=== PATIENT | male | born 1995 | race Caucasian/White ===

== ENCOUNTER 2016-10-03 16:51 | Emergency (ER) | payer OTHER ==
[~2016-10-03] VITALS: Wt 127.3 kg
--- NOTE | 2016-10-03 17:05 | ERD ---
ER Documentation Chief Complaint Date/Time DATE: 10/03/16 TIME: 17:03 Chief Complaint cough, sore throat HPI 21-year-old male otherwise healthy comes emergency department with a cough that has been on and off for the past 2 weeks. He describes as dry cough, with white colored sputum. Has not had any fevers, chills, chest pain or shortness of breath. Reports sore throat. No vomiting or diarrhea. He also states that he has had a itchy rash on the right side of the wrist. He tried an over-the- counter cream, did not help. As he states it is slightly growing in size. ROS All systems reviewed and are negative except as per history of present illness. Medications Home Meds Active Scripts Amoxicillin/Potassium Clav (Amox-Clav 875-125 mg Tablet) 875-125 mg Tab, 1 TAB PO BID for 7 Days, #14 TAB Prov:DENNY AYERS PA-C 10/03/16 Dextromethorphan Hb-Promethazine Hcl (Promethazine DM Syrup) 473 Ml Syrup, 5 ML PO Q6H Y for COUGH, #4 OZ Prov:DENNY AYERS PA-C 10/03/16 Benzonatate* (Tessalon Perle*) 100 Mg Capsule, 100 MG PO Q8H Y for COUGH, #30 CAP Prov:DENNY AYERS PA-C 10/03/16 Allergies Allergies: Coded Allergies: No Known Allergy (Unverified , 10/03/16) PMhx/Soc Medical and Surgical Hx: pt denies Medical Hx, pt denies Surgical Hx Hx Alcohol Use: Yes (Social) Hx Substance Use: No Hx Tobacco Use: No Physical Exam Vitals Vital Signs Date Time Temp Pulse Resp B/P Pulse Ox O2 Delivery O2 Flow Rate FiO2 10/03/16 16:56 98.5 84 20 147/89 99 Physical Exam General: Well-developed, well-nourished. The patient appears in no acute distress. HEENT: Head is normocephalic, atraumatic. No scleral icterus. Throat is clear. Neck: Supple. Nontender. Lungs: Clear to auscultation. Normal air movement. Heart: Regular rate and rhythm. S1 and S2 are normal. No murmurs, gallops, or rubs. Abdomen: Nondistended. Extremities: No clubbing or cyanosis. Moving extremities x 4. No weakness. Neurologic: Alert and oriented 3. No focal deficits. Normal speech and gait. Skin: Circular ringlike rash is slightly raised on the volar aspect of the right wrist. Procedures/MDM The patient is a 21-year-old male who comes in with an acute upper respiratory infection, presumed viral,, also comes in with a rash appears to be ringworm. I will give him promethazine as well as Tessalon Perles for cough. Patient was educated and informed of the lack of efficacy of antibiotics with a viral upper respiratory infection. He will be given these medications, he states that he has had symptoms for approximately 2 weeks, he feels appropriate to discharge with diagnosis of possible bronchitis if symptoms do not improve. He may fill prescription antibiotics if symptoms do not improve in 3-5 days. The patient has a differential diagnosis of a viral upper respiratory infection, bacterial upper respiratory infection, bronchitis, pneumonia, pharyngitis, laryngitis, epiglottitis, croup, pneumonia. Patient has a normal pulmonary examination, clear breath sounds, normal pulse oximetry, with no corrective measures needed at this time. Fluids, rest, antipyretics were encouraged. Departure Diagnosis: Primary Impression: Cough Additional Impression: Rash Condition: Good DENNY AYERS PA-C Oct 03, 2016 17:05
[2016-10-03] MEDS ORDERED: D-ME473S18 PO (17:07)
[2016-10-03] MEDS ORDERED: AMOX1TAB10 PO (17:07)
[2016-10-03] MEDS ORDERED: BENZ100C70 PO (17:07)
[2016-10-03] MEDS ORDERED: CLOT30CR24 TOP (17:09)
== END 2016-10-03 17:07 | disposition home or self-care (01) ==
LOC: E/R 16:51
DX: R05 Cough (principal); R21 Rash and other nonspecific skin eruption
CPT/HCPCS: 99284